=== PATIENT | male | born 1945 | race Caucasian/White ===

== ENCOUNTER 2016-10-08 05:25 | Day surgery (SDC) | payer MEDICARE ==
[2016-10-07 14:46] LABS: HEMATOCRIT 48.2 % (42.0-54.0); HEMOGLOBIN 15.7 g/dL (13.5-17.5); MCH 26.8 pg (26.0-34.0); MCHC 32.6 g/dL (31.0-37.0); MCV 82.3 fL (80.0-100.0); MEAN PLATELET VOLUME 10.5 fL (7.4-10.4); RBC 5.86 10x6/uL (4.20-6.10); RDW 15.7 % (11.5-14.5); WBC 10.3 10x3/uL (4.8-10.8)
[2016-10-07 15:13] LABS: ANION GAP 18.9 mmol/L (8-16); CALCIUM 9.1 mg/dL (8.5-10.1); CARBON DIOXIDE 22.2 mmol/L (21.0-32.0); CREATININE - SERUM 1.1 mg/dL (0.6-1.3); POTASSIUM - SERUM 4.1 mmol/L (3.5-5.1)
[~2016-10-08] VITALS: Ht 182.9 cm; Wt 87.7 kg
[~2016-10-08 05:25] MED LIST: BACLOFEN10 MG PO; FUROSEMIDE20 MG PO; KEPPRA500 MG PO; KLOR-CON 1010 MEQ PO; NEURONTIN 300300 MG PO; NORVASC5 MG PO; OXY IR30 MG PO; PROTONIX20 MG PO; SENNA LAXATIVE8.6 MG PO; TENORMIN50 MG PO; VITAMIN D250000 UNIT PO
[2016-10-08 06:13] VITALS: BP 124/82; BMI 26.9
--- NOTE | 2016-10-08 12:19 | NUR ---
600CC OF PINK FLUID IN GODDARD ON [id number] IN SUPER PUBIC CATH ON ADNIT 2 3000 BAGS IF IRRIGATION CHANGED @1210
--- NOTE | 2016-10-08 12:59 | NUR ---
2700 CC OF PINK FLUID FROM SUPRA PUBIC REMOVED 1230 ANOTHER 500CC FROM GODDARD AT SAME TIME
--- NOTE | 2016-10-08 13:20 | NUR ---
RECEIVED TO ROOM 2216 FROM RECOVERY ROOM. VSS. FREQUENTLY YELLS OUT WHEN BEING TOUCHED. IV TO R WRIST PATENT. SUPRAPUBIC AND GODDARD CATHETER PATIENT DRAINING PINK TINGED URINE WITH CLOTS.
[2016-10-08 13:40] VITALS: BP 112/65
--- NOTE | 2016-10-08 15:00 | NUR ---
CONTINOUS IRRIGATION CONTINUES TO S/P CATHETER. URINE LIGHT PINK. DRY, FLAKING SKIN NOTED TO BILAT FEET. SLIGHT REDNESS NOTED TO BUTTOCKS. BED ALARM IN USE.
[2016-10-08 15:05] VITALS: BP 112/65; Ht 182.9 cm; Wt 87.7 kg
--- NOTE | 2016-10-08 17:48 | NUR ---
GODDARD CATHETER IRRIGATED WITH TOMEY SYRINGE. URINE CONTINUES TO BE BLOOD TINGED. REFUSING TO EAT DINNER.
--- NOTE | 2016-10-08 18:56 | NUR ---
CONTINUES TO RESTING QUIETLY WITH EYES CLOSED. VSS.
[2016-10-08 20:00] VITALS: BP 167/59
[2016-10-09] VITALS: BP 126/71
[2016-10-09 04:00] VITALS: BP 109/68
--- NOTE | 2016-10-09 04:27 | NUR ---
ASSESSED AT THE BEGINNING OF THE SHIFT. PT IS A LITTLE CONFUSED AND WE ARE WATCHING HIM CLOSE DUE TO HAVING A TURP FOR WHICH HE HAS IRRIGATION GOING TO HIS SUPRA PUBIC CATH AND REGULAR GODDARD CATH. HE IS HAVING BLOODY URINE TO THE SUPRA PUBIC CATH BUT NOT THE REGULAR CATH. IT IS JUST IRRIGATION FLUIDS FROM IT. PAIN MEDS HAVE BEEN GIVEN ORDERED AND NEEDED. WE ARE ASSISTING HIM WITH TURNING AND COMFORT/SKIN CARE. THE BED IS LOW, RAILS UP X'S 2 WITH THE CALL LIGHT AT HAND, BUT HE CALLS OUT INSTEAD OF USING THE CALL LIGHT.
[2016-10-09 05:19] LABS: BASOPHILS 0.3 % (0-2); EOSINOPHILS 0.7 % (0-7); HEMATOCRIT 42.4 % (42.0-54.0); IMMATURE GRANULOCYTES 0.3 % (0-5); LYMPHOCYTES 12.9 % (15-50); MCH 26.7 pg (26.0-34.0); MCV 80.8 fL (80.0-100.0); MEAN PLATELET VOLUME 10.3 fL (7.4-10.4); MONOCYTES 8.3 % (2-11); NEUTROPHILS 77.5 % (40-80); PLATELET COUNT 194 10x3/uL (130-400); RBC 5.25 10x6/uL (4.20-6.10); RDW 15.4 % (11.5-14.5)
--- NOTE | 2016-10-09 07:15 | NUR ---
RESTING QUIETLY WITH EYES CLOSED. RESP EVEN,NONLABORED.
[2016-10-09 07:59] VITALS: BP 110/83
--- NOTE | 2016-10-09 09:00 | NUR ---
ASSESSMENT COMPLETE. IV TO R WRIST PATENT. NS INFUSING AT KVO VIA PUMP. SUPRAPUBIC CATHETER AND GODDARD CATHER PATENT. CONTINOUS IRRIGATION IN USE. REFUSING TO WEAR SCD'S. PATIENT REMOVED SCD'S AFTER BEING APPLIED.
--- NOTE | 2016-10-09 09:30 | NUR ---
TRYING TO CLIMB OUT OF BED. BED ALARM SOUNDED. ASSISTED UP TO BEDSIDE COMMODE WITH MINIMAL ASSISTANCE.
--- NOTE | 2016-10-09 10:30 | NUR ---
COMPLAINING OF PAIN. MORPHINE GIVEN SLOW IVP.
[2016-10-09 12:00] VITALS: BP 105/75
--- NOTE | 2016-10-09 14:30 | NUR ---
RESTING QUIETLY IN BED. DENIES ANY NEEDS AT THIS TIME. CONTINOUS IRRIGATION IN USE. BED ALARM IN USE.
[2016-10-09 16:12] VITALS: BP 106/68
--- NOTE | 2016-10-09 17:58 | NUR ---
RESTING QUIETLY IN BED AT THIS TIME. DENIES ANY NEEDS AT THIS TIME. URINE YELLOW WITH SLIGHT BLOOD TINGE NOTED WITH NO CLOTS.
[2016-10-09 20:00] VITALS: BP 107/74
[2016-10-10] VITALS: BP 96/69
[2016-10-10 04:00] VITALS: BP 117/76
--- NOTE | 2016-10-10 04:24 | NUR ---
ASSESSED AT THE BEGINNING OF THE SHIFT. PT IS ALERT AND ORIENTED, ABLE TO VERBALIZE NEEDS. SOMETIMES HE IS A LITTLE HARD HEADED ABOUT WHAT HE CAN DO WHILE HE HAS ALL THE TUBES RUNNING TO HIM. HE STILL HAS THE SUPRA PUBIC CATH IN PLACE AND ALSO A CATH TO HIS PENIS. THIS MORNING WE ARE TO REMOVE THE ONE FROM HIS PENIS AND CLAMP THE ONE TO THE SUPRA PUBIC CATH. HE HAS HAD PAIN MEDS REQUESTED AND ORDERED. THE BED IS LOW, RAILS UP X'S 2 WITH THE CALL LIGHT AT HAND.
--- NOTE | 2016-10-10 07:25 | NUR ---
PATIENT RECEIVED ALERT IN HIGH GRAHAM POSITION. NO SIGNS OF DISTRES NOTED. C/O PAIN AT IV SITE. IV NOTED TO BED RED AND PUFFY. IV D/C WITH CATH TIP INTACT. SITE COVERED WITH GAUZE AND BANDAID. SIDE RAILS UP X3. BED IN LOW POSITION. CALL LIGHT IN REACH.
[2016-10-10 07:54] VITALS: BP 117/85
--- NOTE | 2016-10-10 08:25 | NUR ---
PATIENT ALERT IN BED. VOIDED 100CC INTO URINAL. C/O BURNING ON URINATION. POST VOID BLADDER SCAN SHOWS 124CC. SCHEDULED MEDICATION ADMINISTERED. SIDE RAILS UP X3. BED IN LOW POSITION. CALL LIGHT IN REACH.
--- NOTE | 2016-10-10 11:55 | NUR ---
REPORT CALLED TO [facility]. DEBRA RECEIVED REPORT.
--- NOTE | 2016-10-10 12:25 | NUR ---
D/C TEACHING PROVIDED. PATIENT D/C WITH [facility] STAFF. TRANSFERRED DOWNSTAIRS VIA WHEELCHAIR.
--- NOTE | 2016-10-10 14:39 | NUR ---
Late Entry- 1039 TC to [facility] this AM. CRISTI spoke with Sanjay and advised patient was for discharge today back to facility. Sanjay stated [facility] could provide transportation today. CRISTI requested fax number to fax MD discharge summary and D/C medication list. Phone number [phone] Fax number [phone]. Call back to confirm receipt of fax. Spoke with Karen. Patient will be admitted to a buttermaker bed. Karen states primary nurse to notify her when patient is ready for discharge. She will arrange transportation. CRISTI spoke with primary nurse, Janeen. Provided her with contact numbers and persons. CRISTI had faxed MD discharge summary and med list.
== END 2016-10-10 12:28 ==
LOC: D.MS 05:25 → D.OPS 05:25 → D.PAN 07:30 → D.OPS 10:00 → D.PAN 10:00 → D.MS 12:53 → D.OPS 10-10 12:28
PROVIDERS: Anesthesiology; Urology
DX: N40.1 Benign prostatic hyperplasia with lower urinary tract symptoms (principal); N13.8 Other obstructive and reflux uropathy; R33.8 Other retention of urine; N32.89 Other specified disorders of bladder; N20.0 Calculus of kidney; Z01.812 Encounter for preprocedural laboratory examination; I69.354 Hemiplegia and hemiparesis following cerebral infarction affecting left non-dominant side

== ENCOUNTER 2018-06-08 11:05 | Outpatient (CLI) | payer MEDICARE ==
[~2018-06-08] VITALS: Ht 182.9 cm; Wt 81.8 kg
--- NOTE | ~2018-06-08 | HEMODYNAMI ---
PATIENT:ELIJAH CRAVEN MEDICAL RECORD: [id number] : 45 LOCATION:[facility] ADMISSION DATE: 06/08/18 Generatedon:06/08/201814:10 Patient name: ELIJAH CRAVEN Patient #: [id number] SSN: DO B: 1945 Date of study: 06/08/2018 Page: Of Hemodynamic Procedure Report Patient Data Patient Demographics Procedure consent was obtained First Name: ELIJAH Gender: Male Last Name: HERBER : 1945 Patient #: [id number] Age: 73 year(s) Race: Unknown Additional ID: [id number] Contact details Address: [address] [place] [address] rd State: [place] City: [facility] Zip code: [address] Admission Admission Data Admission Date: 06/08/2018 Admission Time: 11:05 Admit Source: Other Height (in.): 71.65 BSA: 2.02 (m2) Height (cm.): 182 BMI: 24.45 (kg/m2) Weight (lbs.): 178.58 Weight (kg.): 81 Lab Results Lab Result Date: 06/08/2018 Lab Result Time: 0:00 Biochemistry Name Units Result Min Max BUN mg/dl 10 --(-*--)-- 7 18 Creatinine mg/dl 1.2 --(---*)-- 0.6 1.3 CBC Name Units Result Min Max Hemoglobin g/dl 11.6 *-(----)-- 13.5 17.5 Procedure Procedure Types Cath Procedure Peripheral Cath Diagnostic Procedure Chain Link Fence Installer Peripheral Procedures Riukp-Ajogrwb-Kvx-Off Procedure Description Procedure Date Procedure Date: 06/08/2018 Procedure Start Time: 14:00 Procedure End Time: 14:07 Procedure Staff Name Function Aureliano Ortega MD Performing Physician Sayda Pack RN Nurse Helena Lozada RT Scrub Ailyn Perez RT Monitor Procedure Data Cath Procedure Fluoroscopy Diagnostic fluoroscopy Total fluoroscopy Time: 0.6 time: 0.6 min min Diagnostic fluoroscopy Total fluoroscopy dose: 141 dose: 141 mGy mGy Contrast Material Contrast Material Type Amount (ml) Isovue 300 71 Entry Location Entry Primary Successful Side Size Upsize Upsize Entry Closure Succes sful Closure Location (Fr) 1 (Fr) 2 (Fr) Remarks Device Remarks Femoral Right 5 Fr Exoseal artery Estimated blood loss: 5 ml Diagnostic catheters Device Type Used For End Catheter Placement DIAGNOSTIC UF 5Fr Multi-vessel catheter ([id number]) Angiography Procedure Complications No complications Procedure Medications Medication Administration Route Dosage 0.9% NaCl I.V. 100 ml/hr Oxygen etCO2 Nasal cannula 2 l/min Lidocaine 2% added to field 20 Heparin Flush Bag added to field 2 bags (1000units/500ml NS) Versed I.V. 2 mg Fentanyl I.V. 50 mcg Hemodynamics Rest BSA: 2.02 (m2) HGB: 11.6 (g/dl) O2 Consumption: Estimated: 223.08 (ml/min) O2 Co nsumption indexed: Estimated:110.44 (ml/min/m) Heart Rate: 57 (bpm) Snapshots Pre Cath Intra NCS Post Cath Vital Signs Time Heart Resp SPO2 etCO2 NIBP (mmHg) Rhythm Pain Sedation Rate (ipm) (%) (mmHg) Status Level (bpm) 13:47:59 57 14 98 32 155/94(132) SB 0 (11) 10(A) , No pain 13:52:17 63 13 99 21.2 150/94(116) NSR 0 (11) 10(A) , No pain 13:56:35 59 14 98 11.3 130/82(93) SB 0 (11) 10(A) , No pain 14:00:47 61 11 98 15.9 120/88(105) NSR 0 (11) 9(A) , No pain 14:04:59 63 12 97 21.2 123/75(89) NSR 0 (11) 10(A) , No pain Medications Time Medication Route Dose Verified Delivered Reason Notes Eff ectiveness by by 13:48:54 0.9% NaCl I.V. 100 Aureliano Sayda used for ml/hr JordanJose Pack procedure MD CURRY 13:49:01 Oxygen etCO2 2 Aureliano Sayda used for Nasal l/min St Jose Pack procedure cannula MD CURRY 13:49:07 Lidocaine 2% added 20ml Aureliano Bedoya for local to vial Jordan Jordan anesthetic field MD MALLOY 13:49:13 Heparin Flush added 2 Aureliano Bedoya used for Bag to bags [facility] procedure (1000units/500ml field MD MALLOY NS) 13:58:18 Versed I.V. 2 mg Aureliano Alfredo for Elizabeth Ramone sedation RN 13:58:23 Fentanyl I.V. 50 [facility]urel[facility] marzipan maker Log Time Note 13:34:54 Diagnostic Cath Status : Elective 13:35:40 Helena Neville RT(R) sent for patient. Start room use. 13:35:42 Time tracking: Regular hours (M-F 7:00 - 5:00) 13:35:47 Plan of Care:Hemodynamics will remain stable., Cardiac rhythm will remain stable., Comfort level will be maintained., Respiratory function will remain adequate., Patient/ family verbilizes understanding of procedure., Procedure tolerated without complication., Recovers from procedure without complications.. 13:36:35 Patient received from Pre/Post Procedure Room to [facility] 1 Alert and oriented. Tansferred to table in Supine position. 13:36:36 Warm blankets applied, and isabella hugger turned on for patient comfort. 13:36:36 Correct patient and procedure confirmed by team. 13:36:38 Signed procedure consent form obtained from patient. 13:36:39 ECG and BP/O2 sat monitors applied to patient. 13:46:49 Vital chart was started 13:46:51 Baseline sample Acquired. 13:46:54 Rhythm: sinus rhythm 13:46:56 Full Disclosure recording started 13:47:51 H&P Date Dictated: 06/08/2018 Within 30 days and on chart., H&P Addendum completed by physician on day of procedure. (MUST COMPLETE FOR ALL OUTPATIENTS). 13:47:54 Pre-procedure instructions explained to patient. 13:47:54 Pre-op teaching completed and patient verbalized understanding. 13:47:56 Family in waiting room. 13:47:57 Patient NPO since Midnight. 13:48:44 Patient diabetic? Unknown. 13:48:48 Previous problem with sedation/anesthesia? Unknown ? 13:48:50 Snore? Unknown 13:48:52 Sleep apnea? Unknown 13:48:53 Deviated septum? Unknown 13:48:54 0.9% NaCl 100 ml/hr I.V. was administered by Sayda Pack RN; used for procedure; 13:48:55 Opens mouth fully? Yes 13:48:55 Sticks out tongue? Yes 13:48:58 Airway obstruction? Unknown ? 13:49:01 Oxygen 2 l/min etCO2 Nasal cannula was administered by Sayda Pack RN; used for procedure; 13:49:02 Dentures? Unknown ? 13:49:07 Lidocaine 2% 20ml vial added to field was administered by Aureliano Ortega MD; for local anesthetic; 13:49:13 Heparin Flush Bag (1000units/500ml NS) 2 bags added to field was administered by Aureliano Ortega MD; used for procedure; 13:56:27 Pre procedure: right dorsailis pedis pulse Doppler 13:56:30 Pre procedure: left dorsailis pedis pulse Doppler 13:56:32 Patient pain scale 0/10 ?. 13:56:40 IV patent on arrival in left forearm with 0.9% NaCl at [facility]. 13:56:42 Lab results completed and on chart. 13:57:08 Bilateral groins area was prepped with chlora-prep and draped in sterile fashion 13:57:09 Maximum allowable Isovue 300 dose 62.8ml. Physician notified. (300ml for normal creatinines. For patients with creatinine of 1.7 or higher multiply weight x 5 divided by creatinine.) 13:57:10 Alarms reviewed by R. N. 13:57:11 Sharps counted by scrub and verified by R.N. 13:57:12 Physician arrived 13:57:12 --------ALL STOP TIME OUT------ 13:57:13 Final Timeout: patient, procedure, and site verified with staff and physician. All members of the team are in agreement. 13:57:25 Bilateral groins site verified by team. 13:58:18 Versed 2 mg I.V. was administered by Sayda Pack RN; for sedation; 13:58:23 Fentanyl 50 mcg I.V. was administered by Sayda Pack RN; for sedation; 14:00:22 Fire Safety Assessment: A--An alcohol-based skin anteseptic being used preoperatively., C--Open oxygen or nitrous oxide is being used., D--An ESU, laser, or fiber-optic light is being used. 14:00:27 Physical assessment completed. ASA score P 2 - A patient with mild systemic disease as per Aureliano Ortega MD. 14:00:30 Sedation plan: IV Moderate Sedation Medication:Versed, Fentanyl 14:00:37 Procedure started. 14:00:40 Use device set Femoral Dx 14:00:41 ACIST Syringe (07837) opened to sterile field. 14:00:42 Bag Decanter (2002S) opened to sterile field. 14:00:42 Medline Cath Pack ([id number]) opened to sterile field. 14:00:43 DIAGNOSTIC WIRE .035 260cm J wire (655335) opened to sterile field. 14:00:45 ACIST Hand Control (86500) opened to sterile field. 14:00:45 ACIST Manifold (89327) opened to sterile field. 14:00:48 SHEATH 5FR Kohler ([id number]) opened to sterile field. 14:00:55 Local anesthetic to right femoral artery with Lidocaine 2% by Aureliano Ortega MD.INITIAL ACCESS ONLY 14:02:05 A 5 Fr sheath was inserted into the Right Femoral artery 14:02:24 A DIAGNOSTIC UF 5Fr catheter ([id number]) was advanced over the wire and used for Multi-vessel Angiography. 14:03:14 Lab Result : Hemoglobin 11.6 g/dl 14:03:14 Lab Result : BUN 10 mg/dl 14:03:14 Lab Result : Creatinine 1.2 mg/dl 14:03:28 Admit Source: Other 14:03:34 Patient Height : 71.65 inches 14:03:40 Patient Weight : 178.58 lbs 14:04:36 Abdominal angiogram w/ runoff was performed. 14:05:34 EXOSEAL 5Fr (EX500) opened to sterile field. 14:05:44 Sheath removed intact; hemostasis achieved with Exoseal to the Right Femoral artery. 14:05:45 Procedure ended.(Physican Out) 14:05:55 Fluoroscopy time 00.60 minutes. 14:06:00 Fluoroscopy dose: 141 mGy 14:06:00 Flurop Dose total: 141 14:06:24 Contrast amount:Isovue 300 71ml. 14:06:36 Sharps counted by scrub and verified by R.N. 14:06:49 Post-op/insertion site Right Femoral artery dressed using a 4 x 4 and Tegaderm. 14:06:50 Insertion/operative site no bleeding no hematoma. 14:06:51 Post Procedure Pulses reassessed and unchanged 14:06:55 Post procedure rhythm: unchanged. 14:07:03 Estimated blood loss: 5 ml 14:07:05 Post procedure instruction explained to patient.Patient verbalizes understanding. 14:07:05 Patient needs reinforcement of post procedure teaching. 14:07:24 Procedure type changed to Cath procedure, Peripheral Cath Diagnostic Procedure, Chain Link Fence Installer Peripheral Procedures, Yituq-Eltfmsg-Krh-Off 14:07:25 Procedure and supply charges have been captured, reviewed, submitted and are correct. 14:07:31 Procedure Complication : No complications 14:07:33 Vital chart was stopped 14:07:33 See physician's report for complete and final results. 14:07:42 Report given to Pre/Post Procedure Room. 14:07:46 Patient transfered to Pre/Post Procedure Room with Stretcher. 14:07:49 Procedure ended. 14:07:49 Full Disclosure recording stopped 14:07:52 End room use (Document Last) Device Usage Item Name Manufacture Quantity Catalog Hospital Part Current Minimal L ot# / Number Charge Number Stock Stock Serial# Code ACIST Acist 1 31504 [id number] 579733 981475 20 Syringe Medical (39230) Systems Inc Bag Microtek 1 044561 24965 978280 5 Decanter Medical Inc. () Medline Medline 1 [id number] 508312 31930 054360 5 Cath Pack ([id number]) DIAGNOSTIC St Spencer 1 072816 955559 075188 773404 30 WIRE .035 260cm J wire (688616) ACIST Hand Acist 1 88607 282071 764947 065405 5 Control Medical (16780) Systems Inc ACIST Acist 1 24454 965727 969613 284413 5 Manifold Medical (63555) Systems Inc SHEATH 5FR Terumo 1 [id number] 621038 591108 793120 5 Kohler (HPV319) DIAGNOSTIC Cardinal 1 [id number] 503966 492268 598831 10 UF 5Fr Health catheter ([id number]) EXOSEAL 5Fr Cardinal 1 EX500 390966 970743 164599 10 (EX500) Health Signature Audit Seltzer Stage Time Signature Unsigned Intra-Procedure 06/08/2018 Ailyn Perez 2:10:25 PM RT(R) Signatures Monitor : Ailyn Perez RT Signature : Date : Time : [place] [id number] [place] [address]
[2018-06-08 11:38] VITALS: BP 125/87; Ht 182.9 cm; Wt 81.8 kg
[2018-06-08] MEDS ORDERED: ZYRTEC10 MG PO (11:51)
[2018-06-08] MEDS ORDERED: FLUTICASONE PRO16 GM (11:52)
[2018-06-08] MEDS ORDERED: LAMISIL AT12 G1 PO (11:55)
[2018-06-08 11:56] LABS: BASOPHILS 0.7 % (0-2); EOSINOPHILS 2.9 % (0-7); HEMATOCRIT 37.3 % (42.0-54.0); HEMOGLOBIN 11.6 g/dL (13.5-17.5); IMMATURE GRANULOCYTES 0.2 % (0-5); LYMPHOCYTES 30.6 % (15-50); MCH 21.4 pg (26.0-34.0); MCHC 31.1 g/dL (31.0-37.0); MCV 68.8 fL (80.0-100.0); MEAN PLATELET VOLUME 9.7 fL (7.4-10.4); NEUTROPHILS 56.6 % (40-80); PLATELET COUNT 249 10x3/uL (130-400); RBC 5.42 10x6/uL (4.20-6.10); RDW 18.5 % (11.5-14.5); WBC 9.2 10x3/uL (4.8-10.8)
[2018-06-08 11:57] LABS: ANION GAP 13.9 mmol/L (8-16); CALCIUM 8.2 mg/dL (8.5-10.1); CARBON DIOXIDE 25.7 mmol/L (21.0-32.0); CREATININE - SERUM 1.2 mg/dL (0.6-1.3)
[2018-06-08] MEDS ORDERED: ELIQUIS5 MG PO (11:57)
[2018-06-08 11:58] LABS: POTASSIUM - SERUM 5.6 mmol/L (3.5-5.1)
[2018-06-08] MEDS ORDERED: LYRICA75 MG PO (11:58)
[2018-06-08] MEDS ORDERED: ALBUTEROL SULF8.5 GM (12:00)
[2018-06-08] MEDS ORDERED: MECLIZINE HCL25 MG PO (12:01)
--- NOTE | 2018-06-08 14:35 | NUR ---
PATIENT RESTING, VSS ON 2L NC. RIGHT GROIN DRESSING IS CDI, NO S/S OF BLEEDING OR HEMATOMA. NO C/O PAIN, NUMBNESS, OR TINGLING. 2+ PEDAL PULSES.
--- NOTE | 2018-06-08 14:50 | NUR ---
PATIENT RESTING, VSS ON 1L NC. RIGHT GROIN DRESSING IS CDI, NO S/S OF BLEEDING OR HEMATOMA. NO C/O PAIN, NUMBNESS, OR TINGLNG. PATIENT LETHARGIC, RESPONDS TO VERBAL STIMULI.
--- NOTE | 2018-06-08 15:05 | NUR ---
HEAD OF BED ELEVATED TO 30 DEGREES. RIGHT GROIN DRESSING IS CDI, NO S/S OF BLEEDING OR HEMATOMA. NO C/O PAIN, NUMBNESS, OR TINGLING.
--- NOTE | 2018-06-08 15:35 | NUR ---
PATIENT RESTING, VSS ON ROOM AIR. RIGHT GROIN DRESSING IS CDI. PATIENT REMAINS LETHARGIC, ROUSES TO REPEATED VERBAL STIMULI.
--- NOTE | 2018-06-08 16:05 | NUR ---
PATIENT RESTING, HEAD OF BED AT 90 DEGREES. RIGHT GROIN DRESSING IS CDI, NO S/S OF BLEEDING OR HEMATOMA. NO C/O PAIN, NUMBNESS, OR TINGLING. PATIENT REMAINS LETHARGIC.
--- NOTE | 2018-06-08 16:35 | NUR ---
PATIENT AWAKE, ANSWERS QUESTIONS APPROPRIATELY. VSS ON ROOM AIR. RIGHT GROIN DRESSING IS CDI, NO S/S OF BLEEDING OR HEMATOMA. PATIENT DRINKING SODA AND EATING A SANDWICH, NO N/V.
--- NOTE | 2018-06-08 16:50 | NUR ---
EDUCATION GIVEN TO PATIENT REGARDING DISCHARGE INSTRUCTIONS. EDUCATION ALSO GIVEN TO NURSE AT THE [facility], ALL QUESTIONS ANSWERED. IV REMOVED.
--- NOTE | 2018-06-08 17:00 | NUR ---
PATIENT TRANSFERRED VIA WHEELCHAIR TO CAR WITH TRANSPORTER DRIVING, ALL BELONGINGS WITH PATIENT. PATIENT VOIDED WITHOUT DIFFICULTY PRIOR TO TRANSFER.
--- NOTE | 2018-06-09 13:10 | OP ---
PATIENT NAME: ELIJAH CRAVEN MEDICAL RECORD: [id number] :45 LOCATION:[facility] ADMISSION DATE: SURGEON: FABRICE ESPOSITO MD DATE OF OPERATION: 06/08/2018 PROCEDURE: Aortofemoral Runoff. DESCRIPTION: AFRO was performed via the right femoral artery approach, UF catheter was placed to the level just above the renal arteries and aortography was performed and a lower extremity runoff was then performed. FINDINGS: 1. Abdominal aorta shows no evidence of dissection, no evidence of aneurysmal dilatation. 2. Right iliac system is free of disease, right internal and external iliacs both free of disease. 3. Right femoral system: Right superficial femoral, area of previously placed stent shows no evidence of restenosis. No progression of navajo disease. There is 2-vessel runoff. 4. Left system: Left external and internal iliac are widely patent. 5. Right femoral system. Right common and deep femoral are free of disease. Right superficial femoral has a what appears to be 3 sequentially placed stents that are all widely patent without significant restenosis. No progression of navajo disease and 2-vessel runoff. TRANSINT:[id number] Voice Confirmation ID: [id number] DOCUMENT ID: [id number] FABRICE ESPOSITO MD at 1310 CC: [id number] DICTATION DATE: 06/08/18 1413 NETWORK SYSTEMS OPERATOR: 06/09/18 0016 DEP CLI 06/08/18 [facility] [address] [place] [address]
== END 2018-06-08 17:00 ==
LOC: D.CATH 11:05
PROVIDERS: ATTEND Internal Medicine Interventional Cardiology
DX: I70.211 Atherosclerosis of native arteries of extremities with intermittent claudication, right leg (principal); Z01.812 Encounter for preprocedural laboratory examination